=== PATIENT | male | born 1990 | race Caucasian/White ===

== ENCOUNTER 2018-07-17 12:31 | Emergency (ER) | payer OTHER ==
[~2018-07-17] VITALS: Ht 170.2 cm; Wt 86.2 kg
[2018-07-17] MEDS ORDERED: HYDR1TAB94 PO (14:34)
[2018-07-17] MEDS ORDERED: IBUP600 PO (14:34)
== END 2018-07-17 14:45 | disposition home or self-care (01) ==
LOC: ER 12:31
DX: S06.9X9A Unspecified intracranial injury with loss of consciousness of unspecified duration, initial encounter (principal); R07.81 Pleurodynia; R10.9 Unspecified abdominal pain; V29.9XXA Motorcycle rider (driver) (passenger) injured in unspecified traffic accident, initial encounter
CPT/HCPCS: 70450; 71260; 74177; 99285-25; Q9967